=== PATIENT | female | born 1995 | race Hispanic/Latino ===

== ENCOUNTER 2018-09-25 20:16 | Day surgery (SDC) | payer MEDICAID, OTHER ==
[2018-09-25 21:01] VITALS: BMI 25.6
[2018-09-25] MEDS ORDERED: hydrALAZINE 20 MG/ML VIAL SLOW IVP PRN (21:56)
--- NOTE | 2018-09-25 23:04 | PRG ---
DATE OF SERVICE: 09/25/2018 PRIMARY OB: Dr. Boby Cordon. CHIEF COMPLAINT: Abdominal pain. HISTORY OF PRESENT ILLNESS: The patient is a 22-year-old G3, P2 female with an intrauterine at 31 weeks and 3 days, who is transferred from outside ER facility for concerns of labor. The patient reports that she has been having crampiness and contractions for the last couple of days, worse today. She reports that they last for about 10 seconds at a time. The patient reports that she has history of urinary tract infection and had been on antibiotics, specifically metronidazole. The patient reports having sex last night. She denies any fever, fall, headache, chest pain, shortness of breath, nausea, vomiting, diarrhea, constipation, hip problems, knee problems, or muscle weakness. She does report a rash, it has been on her inner thighs since she began having musculoskeletal pains in the . The patient reports that she has been experiencing this rash for a long time now and has been evaluated by Dr. Cordon who is unsure what it could be. PAST MEDICAL HISTORY: Hypothyroidism. PAST SURGICAL HISTORY: Negative. ALLERGIES: NO KNOWN DRUG ALLERGIES. MEDICATIONS: Levothyroxine, vitamins, metronidazole. OB LABORATORY DATA: Unavailable at time of dictation. REVIEW OF SYSTEMS: Per HPI. PHYSICAL EXAMINATION: VITAL SIGNS: Blood pressure 111/60, heart rate of 84, respiratory rate of 20, saturating 94% on room air, temperature 98.4. GENERAL: She appears to be in no acute distress. She is alert, oriented, cooperative, and pleasant to interact with. HEAD: Normocephalic, atraumatic. LUNGS: Clear to auscultation bilaterally. HEART: Has a regular rate and rhythm. ABDOMEN: Soft. She has some tenderness to the right side with deviation and suprapubic region. MUSCULOSKELETAL: No SI joint tenderness. No paravertebral tenderness. No vertebral tenderness. : Vulva is without masses, lesions, or erythema. Vagina is moist with significant amount of creamy discharge. Cervix is further difficult to see given the amount of discharge present. On digital exam, internal os closed as cervix feels full and firm and appropriate for a multiparous cervix. heart tracing baseline is noted to be in the 130s with moderate long-term variability, positive 15 x 15 accelerations, no decelerations. Tocometer shows some irritability, but no consistent pattern or regularity and seems to be fairly infrequent. VP3 is pending. Urinalysis pending. ASSESSMENT AND PLAN: The patient is a 22-year-old female having what appears to be musculoskeletal pains in with possible contractions. There is no evidence of labor at this point. She has a good explanation for her cramping, is due to a sex recently and the patient has a recent history of diarrhea that also may be attributing to her crampiness. VP3 and urinalysis are both pending and given those results, the patient likely be discharged home with appropriate treatment. Unsure what that she is being treated for as she was told is a urinary tract infection; however, metronidazole is not typically used for that. Fetus has a category 1 tracing and reactive NST. Job ID: [id number]
[2018-09-26 00:05] LABS: Bacteria/HPF None Seen HPF (None Seen); Bilirubin Negative (Negative); Blood, Urine Negative (Negative); Clarity Clear (Clear); Glucose, Urine (Dipstick) Normal (Negative); Leukocyte 500 Leu/uL (Negative); Nitrite Negative (Negative); Protein, Urine (Dipstick) Negative (Neg-Trace); RBC/HPF 0-3 HPF (0-3); Urobilinogen Normal mg/dL (Less than 2)
== END 2018-09-26 00:35 | disposition home or self-care (01) ==
LOC: L&D/OP 20:16
PROVIDERS: ATTEND Obstetrics & Gynecology
DX: O99.89 Other specified diseases and conditions complicating pregnancy, childbirth and the puerperium (principal); R10.9 Unspecified abdominal pain; O99.283 Endocrine, nutritional and metabolic diseases complicating pregnancy, third trimester; E03.9 Hypothyroidism, unspecified; Z3A.31 31 weeks gestation of pregnancy; Z79.899 Other long term (current) drug therapy
CPT/HCPCS: 81001; 87480; 87510; 87660; 99285